=== PATIENT | female | born 1990 | race Hispanic/Latino ===

== ENCOUNTER 2016-12-27 09:38 | Emergency (ER) | payer OTHER ==
[~2016-12-27] VITALS: Ht 160 cm; Wt 63.5 kg
[2016-12-27 09:44] VITALS: BP 111/70
[2016-12-27] MEDS ORDERED: DOXYCYCLINE HY100 M2 PO (09:58)
--- NOTE | 2016-12-27 09:59 | ED SKIN/ALLERGY COMPLAINT ---
History of Present Illness General Chief Complaint: Animal/Insect Bite Stated Complaint: TICK BITE, NOW HAS RASH Source: patient Exam Limitations: no limitations Vital Signs & Intake/Output Vital Signs & Intake/Output Vital Signs Date Time Temp Pulse Resp B/P B/P Pulse O2 O2 Flow FiO2 Mean Ox Delivery Rate 12/27 0944 97.2 80 18 111/70 100 Room Air Allergies Coded Allergies: No Known Allergies (12/27/16) Reconcile Medications Doxycycline Hyclate 100 MG CAPSULE 1 CAP PO BID tick bite Triage Note: PT TO ED FOR RASH TO LEFT SIDE OF HER NECK AFTER PULLING A TICK OFF APPROX 2 WEEKS AGO. PT REPORTING SHE NOTICED THE RASH APPROX 3 DAYS AGO AND SINCE THEN HAS BEEN FEELING PROGRESSIVELY UNWELL. Triage Nurses Notes Reviewed? yes Onset: Gradual Duration: day(s): (3) Timing: no prior history Severity: moderate Severity Numbers: 6 Location: neck Possible Factors: tick bite No Modifying Factors: none : No Patient currently breastfeeds: No HPI: Patient is a 26-year-old female, no medical problems presenting to the emergency department with chief complaint of rash to the left side of her neck has been going on for the past 3 days. She reports the rash is painful in nature. Nonpleuritic. She does report that she pulled a tick off of her neck 2 weeks ago. She is unsure how long the tick was on a report. She reports intermittent headaches and malaise. Positive nausea without vomiting. No abdominal pain. No chest pain palpitations or shortness of breath. No history of Lyme disease in the past. No numbness or tingling. Denies neck pain or back pain. ([place]) Past History Travel History Traveled to [place] past 21 day No Medical History Any Pertinent Medical History? see below for history Neurological: NONE EENT: NONE Cardiovascular: NONE Respiratory: NONE Gastrointestinal: NONE Hepatic: NONE Renal: NONE Musculoskeletal: NONE Psychiatric: NONE Endocrine: NONE Blood Disorders: NONE Cancer(s): NONE Surgical History Surgical History: non-contributory Psychosocial History What is your primary language Uzbek Tobacco Use: Never used ETOH Use: denies use Illicit Drug Use: denies illicit drug use Family History Hx Contributory? No ([place]) Review of Systems Review of Systems Constitutional: Reports: malaise. Comments Review of systems: See HPI, All other systems negative. Constitutional, no chills fever or weight loss HEENT: No visual changes no sore throat no congestion Cardiovascular: No chest pain ,palpitation , orthopnea or ankle swelling Skin, no jaundice Respiratory: No dyspnea cough sputum or hemoptysis GI: no vomiting : No dysuria No hematuria Muscle skeletal: no back pain, no neck pain, Neurologic: No numbness no confusion Psych: No stress anxiety or depression,. Heme/endocrine: No bruising no bleeding no polyuria or polydipsia Immunology: No splenectomy or history of AIDS ([place]) Physical Exam Physical Exam General Appearance: well developed/nourished, no apparent distress, alert, awake , comfortable Comments: Well-developed well-nourished person in no acute distress HEENT: extraocular motion intact, no nystagmus. Pupils equally round and reactive to light and accommodation. Nose is atraumatic. External auditory canal and Tympanic membranes clear. Pharynx normal. No swelling or edema. Neck: Supple, no lymphadenopathy, normal range of motion without pain or tenderness Back: Nontender Cardiovascular: Regular rate and rhythms no murmurs rubs or gallops, normal JVP Respiratory: Chest nontender. No respiratory distress.breath sounds clear to auscultation bilaterally Extremity: No edema, no calf tenderness to palpation, normal and equal pulses. Neuro: Alert oriented x3, motor sensory normal, cranial nerves II through XII grossly intact. Skin: Erythematous rash, circular, slightly raised edges approximately 4 cm in length over the left side of the neck at the base, blanchable. Slight clearing in the central aspect. Psych: Mood and affect is normal, memory and judgment is normal. ([place]) Progress Differential Diagnosis: nonspecific rash, contact dermatitis, Lyme disease, erythema migrans, tinea Plan of Care: Orders Procedure Date/time Status LYME TITRE 12/27 0956 Active Laboratory Tests 12/27/16 1001: Lyme Disease Antibody Pending Comments: Patient will be treated for Lyme disease as this is a nonspecific rash although it does have characteristics of a target lesion. We kaykay the Lyme titer. Patient will be notified in 3 days. Patient nontoxic afebrile vitals within normal range. ([place]) Departure Departure Time of Disposition: 956 Disposition: HOME OR SELF CARE Condition: Stable Clinical Impression Primary Impression: Tick bite Qualifiers: Encounter type: initial encounter Qualified Code: W57.XXXA - Bitten or stung by nonvenomous insect and other nonvenomous arthropods, initial encounter Referrals: UNKNOWN (PCP/Family) Additional Instructions: Follow-up with your primary care physician call to make an appointment. We will have results in 3 days, we will call you with any positive results. Take doxycycline as prescribed. Apply cool compresses to affected area. Avoid scratching. Departure Forms: Customer Survey General Discharge Information Prescriptions: Current Visit Scripts Doxycycline Hyclate 1 CAP PO BID #20 CAP ([place]) PA/KETTLE OPERATOR HEAD Co-Sign Statement Statement: ED Attending supervision documentation- [] I saw and evaluated the patient. I have also reviewed all the pertinent lab results and diagnostic results. I agree with the findings and the plan of care as documented in the PA's/KETTLE OPERATOR HEAD's documentation. [X] I have reviewed the ED Record and agree with the PA's/KETTLE OPERATOR HEAD's documentation. [] Additions or exceptions (if any) to the PAs/KETTLE OPERATOR HEAD's note and plan are summarized below: [] (ADRIANA ARENAS,WILIAM Gage)
== END 2016-12-27 10:30 ==
LOC: ERH 09:38
DX: S10.96XA Insect bite of unspecified part of neck, initial encounter (principal); W57.XXXA Bitten or stung by nonvenomous insect and other nonvenomous arthropods, initial encounter; Y93.9 Activity, unspecified; Y92.9 Unspecified place or not applicable
CPT/HCPCS: 86618